=== PATIENT | female | born 1945 | race Caucasian/White ===

== ENCOUNTER → 2017-03-11 | Outpatient (CLI) | payer MEDICARE ==
[2015-06-24 15:59] VITALS: BP 155/71
[~2017-03-11] MED LIST: AMLO10TA2 PO; GABA-585 PO; HYDR-2666 PO; HYDR-971 PO; LISI1TAB3 PO; ROPI0.5T PO
--- NOTE | 2017-03-11 12:13 | CARD ---
APPROVED REPORT EXAM: Two-dimensional and M-mode echocardiogram with Doppler and color Doppler. Other Information Quality : GoodHR: 58bpm Rhythm : Bradycardia INDICATION Hypertension RISK FACTORS PVD 2D DIMENSIONS RVDd3.2 (2.9-3.5cm)Left Atrium(2D)5.1 (1.6-4.0cm) IVSd1.0 (0.7-1.1cm)Aortic Root(2D)3.7 (2.0-3.7cm) LVDd5.1 (3.9-5.9cm)LVOT Diameter2.2 (1.8-2.4cm) PWd1.0 (0.7-1.1cm)LVDs3.4 (2.5-4.0cm) FS (%) 32.6 %SV75.8 ml LVEF(%)60.7 (>50%) Aortic Valve AoV Peak Tyron.90.5cm/sAoV VTI25.1cm AO Peak GR.3.3mmHgLVOT Peak Tyron.66.7cm/s AO Mean GR.2mmHgAVA (VMAX)2.88cm2 Mitral Valve MV E Povtzgck600.2cm/sMV E Peak Gr.4mmHg MV DECEL [id number] A Weavsyxl78.9cm/s MV E Mean Gr.2mmHgE/A Ratio1.3 MV A Spxhndiw96er Pulmonary Valve PV Peak Twdghsyw86.4cm/s Tricuspid Valve TR P. Cblqefbq432px/sTR Peak Gr.30mmHg LEFT VENTRICLE The left ventricle is normal size. There is normal left ventricular wall thickness. The left ventricu lar systolic function is normal and the ejection fraction is within normal range. The Ejection Fracti on is 55-60%. There is normal LV segmental wall motion. Transmitral Doppler flow pattern is Grade II- pseudonormal filling dynamics. RIGHT VENTRICLE The right ventricle is normal size. There is normal right ventricular wall thickness. The right ventr icular systolic function is normal. ATRIA The left atrium is mildly dilated. The right atrium size is normal. The atrial septum is aneurysmal. The interatrial septum is intact with no evidence for an atrial septal defect or patent foramen ovale as noted on 2-D or Doppler imaging. AORTIC VALVE The aortic valve is mildly thickened. The aortic valve is trileaflet. Doppler and Color Flow revealed no significant aortic regurgitation. There is no significant aortic valvular stenosis. MITRAL VALVE There is no evidence of mitral valve prolapse. There is no mitral valve stenosis. Doppler and Color F low revealed mild mitral regurgitation. TRICUSPID VALVE Doppler and Color Flow revealed trace to mild tricuspid regurgitation. The pulmonary artery systolic pressure is estimated at 33 mmHg. PULMONIC VALVE Doppler and Color Flow revealed no pulmonic valvular regurgitation. There is no pulmonic valvular maria d nosis. GREAT VESSELS The aortic root is normal in size. The ascending aorta is normal in size. The pulmonary artery is nor mal. The IVC is normal in size and collapses >50% with inspiration. PERICARDIAL EFFUSION There is no evidence of significant pericardial effusion. Critical Notification Critical Value: No <Conclusion> The left ventricle is normal size. The left ventricular systolic function is normal and the ejection fraction is within normal range. The Ejection Fraction is 55-60%. There is normal left ventricular wall thickness. The atrial septum is aneurysmal. The interatrial septum is intact with no evidence for an atrial septal defect or patent foramen ovale as noted on 2-D or Doppler imaging. There is no significant aortic valvular stenosis. Doppler and Color Flow revealed no significant aortic regurgitation. Doppler and Color Flow revealed mild mitral regurgitation. Doppler and Color Flow revealed trace to mild tricuspid regurgitation. The pulmonary artery systolic pressure is estimated at 33 mmHg.
--- NOTE | 2017-03-11 13:21 | RAD ---
APPROVED REPORT Patient Location: OUT-PATIENT Indications PAD VELOCITY AND DOPPLER WAVEFORM ANALYSIS RIGHT cm/secWaveformSeverity LEFT c m/secWaveformSeverity Ext Iliac Art. 165.0MonophasicExt Iliac Art. 192.0Biphasic pCFA 177.0MonophasicpCFA 119.0Biphasic dCFA 145.0MonophasicdCFA 76.0Biphasic Prof Fem Art. 80.0MonophasicProf Fem Art. 57.0Biphasic Fem Art Prox. OccludedFem Art Prox. 234.0Triphasic Fem Art Mid. OccludedFem Art Mid. 130.0Triphasic Fem Art Dist. 260.0MonophasicFem Art Dist. 160.0Triphasi c Pop Art(AK) 94.0MonophasicPop Art(AK) 79.0Biphasic Pop Art(BK) 78.0MonophasicPop Art(BK) 81.0Biphasic NUCLEAR FUEL PROCESSING TECHNICIAN Prox. 40.0MonophasicPTA Prox. 68.0Biphasic NUCLEAR FUEL PROCESSING TECHNICIAN Dist. 38.0MonophasicPTA Dist. 72.0Biphasic Per Art Mid. 21.0MonophasicPer Art Mid. 45.0Biphasic DEANN Prox. 34.0MonophasicATA Prox. 49.0Biphasic Image Findings Caal scale images of the right lower extremity inflow and outflow vessels reveal mild to moderate ath erosclerotic disease on limited imaging. Color Doppler is notable for turbulence in the distal SFA. Spectral waveforms suggest monophasic waveforms in the inflow vessels likely related to a occlusion o f the proximal to mid SFA. The distal SFA is reconstituted via collaterals with elevated velocities a t 260 cm/s. There is diminished monophasic flow in the below-knee vessels but there is three-vessel r unoff. On the left there is biphasic flow on spectral waveforms and grayscale images again demonstrate mild to moderate atherosclerotic plaque. There is a probable 50% stenosis involving the proximal to mid SF A with elevated velocities of 234 cm/s. Otherwise there is good distal three-vessel runoff in the lef t lower extremity with monophasic waveforms but adequate velocities. Critical Notification Critical Value: No <Conclusion> 1. Occlusion of the previously placed right superficial femoral artery stent. 2. Probable mild to moderate left SFA stenosis with good three-vessel runoff.
== END | disposition home or self-care (01) ==
LOC: US 09:30
PROVIDERS: ATTEND Internal Medicine Cardiovascular Disease
DX: I73.9 Peripheral vascular disease, unspecified (principal); R00.1 Bradycardia, unspecified; Q21.1 Atrial septal defect; I08.1 Rheumatic disorders of both mitral and tricuspid valves
CPT/HCPCS: 93306; 93925

== ENCOUNTER 2017-05-10 06:23 | Outpatient (CLI) | payer MEDICARE ==
[2017-05-10] VITALS (10 sets, daily range): BP systolic 105–148; BP diastolic 52–76
[~2017-05-10] VITALS: Ht 170.2 cm; Wt 72.6 kg
[~2017-05-10 06:23] MED LIST changes: +AMLO5TAB2 PO; +ASCO-78 PO; +ASPI-612 PO; +CALC-584 PO; +CHOL10003 PO; +CLOP75TA PO; +DIPH25CA58 PO; +DULO60CA6 PO; +FERR-26 PO; -HYDR-2666 PO; +HYDR-2758 PO; +HYDR-2762 PO; +LISI-338 PO; +PRAV40TA2 PO; +ROPI1TAB PO
[2017-05-10] MEDS ORDERED: LIDOCAINE 2% 20 ML VIAL. ONE (07:03)
[2017-05-10] MEDS ORDERED: IODIXANOL 320 MG/ML 100 ML VIAL. ONE (07:04)
[2017-05-10 07:05] LABS: HEMATOCRIT 39.3 % (36.0-47.0); HEMOGLOBIN 12.8 g/dL (12.0-15.5); RED BLOOD COUNT 4.29 x10^6/uL (3.50-5.40); RED CELL DISTRIBUTION WIDTH 14.5 % (11.5-14.5); WHITE BLOOD COUNT 4.5 x10^3/uL (4.0-11.0)
[2017-05-10 07:12] LABS: CALCIUM 9.4 mg/dL (8.5-10.1); CREATININE 1.6 mg/dL (0.6-1.0); GFR 31.5; POTASSIUM 4.1 mmol/L (3.5-5.1)
[2017-05-10 07:16] LABS: PROTHROMBIN TIME PATIENT 12.3 SEC (11.7-14.0)
[2017-05-10] MEDS: IV NORMAL SALINE 1000ML BAG 1,000 ML IV SCH ×2 (07:30→08:00)
[2017-05-10] MEDS ORDERED: MIDAZOLAM HCL/PF 5 MG/5 ML VIAL. ONE (07:55)
[2017-05-10] MEDS ORDERED: HEPARIN for IV BOLUS 10,000 UNIT/10 ML VIAL. ONE ×2 (07:55→08:08)
[2017-05-10] MEDS ORDERED: fentaNYL PF VIAL 100 MCG/2 ML VIAL ONE ×2 (07:55→08:31)
[2017-05-10] MEDS ORDERED: dilTIAZem IV PUSH 25 MG/5 ML VIAL ONE (08:08)
[2017-05-10] MEDS ORDERED: NITROGLYCERIN 4 MG/20 ML SYRINGE for CATH LAB. ONE ×2 (08:08)
[2017-05-10] MEDS ORDERED: fentaNYL PF VIAL 100 MCG/2 ML VIAL IV ONE (08:15)
[2017-05-10] MEDS ORDERED: IODIXANOL 320 MG/ML 100 ML VIAL. IART ONE (08:15)
[2017-05-10] MEDS ORDERED: CONTRAST GIVEN MC PRN (08:15)
[2017-05-10] MEDS ORDERED: MIDAZOLAM HCL/PF 5 MG/5 ML VIAL. IV ONE (08:15)
[2017-05-10] MEDS ORDERED: LIDOCAINE 2% 20 ML VIAL. IJ ONE (08:15)
[2017-05-10] MEDS ORDERED: NITROGLYCERIN 200 MCG/2 ML SYRINGE FOR CATH/VASC LAB. ONE (08:39)
[2017-05-10] MEDS ORDERED: VERAPAMIL 5 MG/2 ML VIAL. ONE (08:39)
[2017-05-10] MEDS ORDERED: HEPARIN for IV BOLUS 10,000 UNIT/10 ML VIAL. IV ONE (09:00)
[2017-05-10] MEDS ORDERED: NITROGLYCERIN 200 MCG/2 ML SYRINGE FOR CATH/VASC LAB. IART ONE (09:00)
[2017-05-10] MEDS ORDERED: VERAPAMIL 5 MG/2 ML VIAL. IART ONE (09:00)
[2017-05-10] MEDS ORDERED: HEPARIN for IV BOLUS 10,000 UNIT/10 ML VIAL. IART ONE (09:00)
[2017-05-10] MEDS ORDERED: ACETAMINOPHEN 325 MG TABLET. PO PRN (10:00)
--- NOTE | 2017-05-10 10:12 | PDOC ---
MODERATE SEDATION ASSESSMENT RISKS/ALTERNATIVES Risks/Alternatives Risks and alternatives of this type of sedation and procedure discussed with: RISK/ALTERNATIVES: Patient H & P ON CHART H & P H & P on chart and reviewed for co-morbid conditions and appropriate labs. H&P ON CHART: Yes STATUS PREG STATUS ASSESSED: N/A MEDS/ALLERGIES REVIEWED Meds/Allergies Reviewed Medications and Allergies including time and route of recently administered narcotics and sedatives. MEDS/ALLERGIES REVIEWED: Yes ASA RATING ASA RATING: II AIRWAY ASSESSMENT Airway Assessment Airway patency, oral function limitations, presence of caps, crowns, dentures, partials, and ability to extend neck assessed. AIRWAY ASSESSMENT: Yes MALLAMPATI SCORE MALLAMPATI SCORE: II PRE-SEDATION ASSESSMENT PRE-SEDATION ASSESSMENT: Yes SILVIO DOVER MD May 10, 2017 10:12
[2017-05-10] MEDS ORDERED: IV 1/2 NORMAL SALINE 1,000 ML IV SCH (10:15)
--- NOTE | 2017-05-10 10:42 | CARD ---
APPROVED REPORT Procedure(s) performed: Successful orbital atherectomy/drug-coated balloon HONEY LIQUEFIER/stent placement to the left superficial femoral artery via left posterior tibial arterial access Sedation time: 110 minutes INDICATION The indication(s) include : 72-year-old female with history of peripheral vascular disease with latasha ication recently underwent complex atherectomy/HONEY LIQUEFIER/stent placement to chronic total occlusion involvi ng right superficial femoral artery. She presented today for staged atherectomy/HONEY LIQUEFIER/stent placement t o the left superficial femoral artery.. PROCEDURE NARRATIVE After explaining the risks, benefits and alternative options, informed consent was obtained from angeles ent. Patient was brought to the cardiac Legal Officer and her left foot was prepped and draped in the usua l fashion. After infiltrating the skin and subcutis tissues with local anesthetic, arterial access wa s obtained in the left posterior tibial artery using vascular ultrasound guidance and 6 Jordanian sheath was inserted. A 4 Jordanian angled glide catheter was advanced over a 0.014 inch command guidewire and with the tip positioned in the left common femoral artery left lower extremity angiography was perfor med. This confirmed the previously described long calcified 70% stenosis involving the proximal segme nt, 80% stenosis involving the mid and distal segments and chronic total occlusion involving the left anterior tibial artery. The command guidewire was then exchanged to a 0.014 inch viper guidewire. Multiple orbital atherectom y passes were then performed within the proximal, mid and distal segments of the left superficial fem oral artery using CSI 1.5 Stealth atherectomy floresita. The proximal to midsegment was then treated with drug-coated balloon angioplasty using a 3DMGAMEtronic 5 x 150 mm Inpact DCB. The same balloon was then us ed dilate the mid and distal segments of left superficial femoral artery. The midsegment stenosis was then successfully treated with a 5.5 x 1 50 mm Tejada Supera self-expanding stent that was then post dilated with the previously used DCB. Final angiography showed resolution of the stenosis with good distal flow. Patient tolerated the procedure well. Hemostasis in the left posterior tibial artery was achieved using TR band. There were no immediate complications. Conclusion Successful orbital atherectomy/drug coated balloon angioplasty/stent placement to the left superficia l femoral artery.
[2017-05-10] MEDS ORDERED: CLOPIDOGREL BISULFATE 75 MG TABLET PO ONE ×2 (10:45→11:00)
== END 2017-05-10 12:55 | disposition home or self-care (01) ==
LOC: CCL 06:23
PROVIDERS: ATTEND Internal Medicine Cardiovascular Disease
DX: I70.298 Other atherosclerosis of native arteries of extremities, other extremity (principal); E78.00 Pure hypercholesterolemia, unspecified; I10 Essential (primary) hypertension; J44.9 Chronic obstructive pulmonary disease, unspecified; M19.90 Unspecified osteoarthritis, unspecified site; F41.9 Anxiety disorder, unspecified; F32.9 Major depressive disorder, single episode, unspecified; F17.200 Nicotine dependence, unspecified, uncomplicated; Z79.01 Long term (current) use of anticoagulants; Z87.898 Personal history of other specified conditions; Z90.710 Acquired absence of both cervix and uterus; Z87.39 Personal history of other diseases of the musculoskeletal system and connective tissue; Z96.643 Presence of artificial hip joint, bilateral; Z88.8 Allergy status to other drugs, medicaments and biological substances
CPT/HCPCS: 36415; 37227; 80048; 85027; 85610; 85730; 99152; 99153; C1724; C1769; C1877; C1887; C1892; C2623; J1644; J2001; J2250; J3010; J3490; J7030

== ENCOUNTER 2017-05-16 15:38 | Emergency (ER) | payer MEDICARE ==
[~2017-05-16] VITALS: Ht 170.2 cm; Wt 72.6 kg
[2017-05-16] MEDS ORDERED: fentaNYL PF VIAL 100 MCG/2 ML VIAL IV PRN (16:45)
[2017-05-16 19:05] LABS: BASO # 0.1 x10^3/uL (0.0-0.2); BASO % 1 % (0-3); EOS % 1 % (0-3); HEMOGLOBIN 11.8 g/dL (12.0-15.5); LYMPH # 1.5 x10^3/uL (1.0-4.8); LYMPH % 25 % (24-48); MEAN CORPUSCULAR HEMOGLOBIN 30 pg (25-35); MEAN CORPUSCULAR HGB CONC 33 g/dL (31-37); MEAN CORPUSCULAR VOLUME 91 fL (79-100); MONO % 8 % (0-9); NEUT % 65 % (31-73); PLATELET COUNT 273 x10^3/uL (140-400); RED BLOOD COUNT 3.95 x10^6/uL (3.50-5.40); RED CELL DISTRIBUTION WIDTH 14.3 % (11.5-14.5); WHITE BLOOD COUNT 5.9 x10^3/uL (4.0-11.0)
[2017-05-16 19:28] LABS: CALCIUM 9.1 mg/dL (8.5-10.1); CREATININE 1.2 mg/dL (0.6-1.0); GFR 43.9; POTASSIUM 4.7 mmol/L (3.5-5.1)
--- NOTE | 2017-05-16 20:00 | RAD ---
Indication: Left leg pain. Left lower extremity venous Doppler: Grayscale, color-flow and duplex Doppler evaluation of the left lower extremity deep venous and arterial system was performed. There is no evidence of a left lower extremity DVT. The left lower extremity deep venous system demonstrates normal compressibility with normal response to augmentation and Valsalva. IMPRESSION: No evidence of left lower extremity DVT. Left lower extremity arterial Doppler: There is predominantly monophasic flow throughout the left lower extremity arterial system. The patient does have a stent in the left SFA which appears to be patent. The velocities are normal within the left common femoral, superficial femoral and popliteal arteries. Velocities within the left posterior tibial and anterior tibial arteries as well as the dorsalis pedis artery are normal. No high-grade stenosis or occlusion is seen. IMPRESSION: Monophasic waveforms throughout the left lower extremity arterial system. The patient does have a patent left SFA stent. No high-grade stenosis or occlusion is seen. Electronically signed by: Allen Bauer MD (05/16/2017 7:57 PM) [facility]
[2017-05-16 20:50] VITALS: BP 122/69
[2017-05-16] MEDS ORDERED: oxyCODONE/APAP 7.5/325 1 TAB TABLET PO ONE (21:00)
[2017-05-16] MEDS ORDERED: CEPHALEXIN 250 MG CAPSULE. PO ONE (21:00)
[2017-05-16] MEDS ORDERED: CEPH-264 PO (21:11)
[2017-05-16] MEDS ORDERED: HYDR-2762 PO (21:11)
--- NOTE | 2017-05-17 00:50 | ED.ADGEN ---
Past Medical History Past Medical History: High Cholesterol, Hypertension, Renal Disease, Other Past Surgical History: Appendectomy, Hysterectomy, Oophorectomy Additional Information: About 1/2 PPD. Pt. reports she slowly cut down to 1/2 pack and then kept decreasing and "finally quit." Alcohol Use: Occasionally Drug Use: None Adult General Chief Complaint Chief Complaint: LOWER EXT PAIN HPI HPI Patient is a 72 year old woman, history of CAD, hypertension, renal disease, who presents to the emergency department with a complaint of left lower extremity swelling and pain. Patient had stents placed in the SFA the left lower extremity 7 days ago by her porcelain enamel repairer, Dr. Gomes. Patient noted swelling and pain afterwards. Patient was evaluated in the office today, and was referred to the emergency department to receive imaging of the lower extremity to rule out DVT or arterial abnormality. Patient states she's been taking her chronic pain medications, hydrocodone, at home without relief. States that "I just want to make sure I'm not doing anything wrong and that there is not anything different and needs to be done". She denies any new injuries, any fevers or chills, any weakness, numbness, tingling, nausea or vomiting, chest pain or shortness breath, or other complaints. No history of DVT or PE. Review of Systems Review of Systems Constitutional: Denies fever or chills. [] Eyes: Denies change in visual acuity. [] HENT: Denies nasal congestion or sore throat. [] Respiratory: Denies cough or shortness of breath. [] Cardiovascular: Denies chest pain or edema. [] GI: Denies abdominal pain, nausea, vomiting, bloody stools or diarrhea. [] : Denies dysuria. [] Musculoskeletal: Denies back pain, swelling, redness and pain in the left foot and ankle extending into the calf. Integument: Denies rash. [] Neurologic: Denies headache, focal weakness or sensory changes. [] Endocrine: Denies polyuria or polydipsia. [] Lymphatic: Denies swollen glands. [] Psychiatric: Denies depression or anxiety. [] Current Medications Current Medications Current Medications Medications (Trade) Dose Ordered Sig/Sarah Start Time Stop Time Status Last Admin Dose Admin Cephalexin HCl (Keflex) 500 mg 1X ONCE 05/16/17 21:00 05/16/17 21:01 DC 05/16/17 20:52 500 MG Fentanyl Citrate (Fentanyl 2ml Vial) 25 mcg PRN Q15MIN PRN 05/16/17 16:45 05/16/17 21:21 DC 05/16/17 19:11 25 MCG Oxycodone/ Acetaminophen (Percocet 7.5/ 325) 1 tab 1X ONCE 05/16/17 21:00 05/16/17 21:01 DC 05/16/17 20:52 1 TAB Allergies Allergies Allergies Coded Allergies Type Severity Reaction Last Updated Verified albuterol Allergy Intermediate 06/23/15 Yes Physical Exam Physical Exam Constitutional: Well developed, well nourished, no acute distress, non-toxic appearance. [] HENT: Normocephalic, atraumatic, bilateral external ears normal, oropharynx moist, no oral exudates, nose normal. [] Eyes: PERRLA, EOMI, conjunctiva normal, no discharge. [] Neck: Normal range of motion, no tenderness, supple, no stridor. [] Cardiovascular:Heart rate regular rhythm, no murmur , S1, S2, rubs or gallops. [ ] Lungs & Thorax: Bilateral breath sounds clear to auscultation, no wheezing, rhonchi, rales. No chest or crepitus or tenderness. [] Abdomen: Bowel sounds normal, soft, no tenderness, no rebound, rigidity, no guarding, no masses, no pulsatile masses. [] Skin: Warm, dry, no erythema, no rash. [] Back: No tenderness, no CVA tenderness. [] Extremities: Patient with 2+ pitting edema with tenderness from the mid calf down into the foot, with mild erythema noted in the anterior aspect of the leg primarily, no abscess formation or induration. Full range of motion, other extremities are unremarkable. Pulses are 2+ bilaterally. Neurologic: Alert and oriented X 3, normal motor function, normal sensory function, no focal deficits noted. [] Psychologic: Affect normal, judgement normal, mood normal. [] Current Patient Data Vital Signs Vital Signs Date Time Temp Pulse Resp B/P (MAP) Pulse Ox O2 Delivery O2 Flow Rate FiO2 05/16/17 20:52 16 96 Room Air 05/16/17 20:50 71 122/69 (86) 05/16/17 16:42 98.5 98.5 Lab Values Laboratory Tests Test 05/16/17 18:59 White Blood Count 5.9 x10^3/uL (4.0-11.0) Red Blood Count 3.95 x10^6/uL (3.50-5.40) Hemoglobin 11.8 g/dL (12.0-15.5) L Hematocrit 36.0 % (36.0-47.0) Mean Corpuscular Volume 91 fL (79-100) Mean Corpuscular Hemoglobin 30 pg (25-35) Mean Corpuscular Hemoglobin Concent 33 g/dL (31-37) Red Cell Distribution Width 14.3 % (11.5-14.5) Platelet Count 273 x10^3/uL (140-400) Neutrophils (%) (Auto) 65 % (31-73) Lymphocytes (%) (Auto) 25 % (24-48) Monocytes (%) (Auto) 8 % (0-9) Eosinophils (%) (Auto) 1 % (0-3) Basophils (%) (Auto) 1 % (0-3) Neutrophils # (Auto) 3.9 x10^3uL (1.8-7.7) Lymphocytes # (Auto) 1.5 x10^3/uL (1.0-4.8) Monocytes # (Auto) 0.5 x10^3/uL (0.0-1.1) Eosinophils # (Auto) 0.1 x10^3/uL (0.0-0.7) Basophils # (Auto) 0.1 x10^3/uL (0.0-0.2) Sodium Level 143 mmol/L (136-145) Potassium Level 4.7 mmol/L (3.5-5.1) Chloride Level 104 mmol/L (98-107) Carbon Dioxide Level 30 mmol/L (21-32) Anion Gap 9 (6-14) Blood Urea Nitrogen 24 mg/dL (7-20) H Creatinine 1.2 mg/dL (0.6-1.0) H Estimated GFR (Cockcroft-Gault) 43.9 Glucose Level 99 mg/dL (70-99) Calcium Level 9.1 mg/dL (8.5-10.1) Laboratory Tests 05/16/17 18:59 Laboratory Tests 05/16/17 18:59 EKG EKG Not indicated. [] Radiology/Procedures Radiology/Procedures [][facility] [address] [place] [address] IMAGING REPORT Signed PATIENT: IGGY MONTOYA ACCOUNT: [id number] : 1945 LOCATION: ER AGE: 72 SEX: F EXAM STATUS: DEP ER ORD. PHYSICIAN: LIDIA PALENCIA DO REASON: swelling/pain PROCEDURE: DUPLEX LOWER EXT ARTERIAL LEFT Indication: Left leg pain. Left lower extremity venous Doppler: Grayscale, color-flow and duplex Doppler evaluation of the left lower extremity deep venous and arterial system was performed. There is no evidence of a left lower extremity DVT. The left lower extremity deep venous system demonstrates normal compressibility with normal response to augmentation and Valsalva. IMPRESSION: No evidence of left lower extremity DVT. Left lower extremity arterial Doppler: There is predominantly monophasic flow throughout the left lower extremity arterial system. The patient does have a stent in the left SFA which appears to be patent. The velocities are normal within the left common femoral, superficial femoral and popliteal arteries. Velocities within the left posterior tibial and anterior tibial arteries as well as the dorsalis pedis artery are normal. No high-grade stenosis or occlusion is seen. IMPRESSION: Monophasic waveforms throughout the left lower extremity arterial system. The patient does have a patent left SFA stent. No high-grade stenosis or occlusion is seen. Electronically signed by: Allen Bauer MD (05/16/2017 7:57 PM) [facility] DICTATED and SIGNED BY: ALLEN BAUER MD DATE: 05/16/171953 CC: LIDIA PALENCIA DO; Juana RODRIGUEZ MD ~ Course & Med Decision Making Course & Med Decision Making Pertinent Labs and Imaging studies reviewed. (See chart for details) Patient well-appearing, aside from swelling and redness as stated, agreeable to receiving ultrasound in the emergency department. Initially did decline laboratory studies and IV placement, was agreeable when discussed administering IV pain medication as it will take some time to have the patient's ultrasound obtained and read. There was a delay in receiving reads of ultrasounds due to technical difficulties with the PAC system. Imaging however was unremarkable for any concerning findings, SFA stents patent. I did discuss findings with patient, laboratory studies were also unremarkable. However, due to redness and swelling with warmth, will treat for possible cellulitis, although the patient' s changes may be consistent with her postprocedure state also. Patient states that she is very ready to be discharged home, and is comfortable with use of pain medications at home, and activity recommendations as discussed in the ED. We discussed concerning symptoms that prompt return, patient first dose of Keflex and a dose of hydrocodone in the ED, also given extra pain medication to ensure that she is able to meet her needs until she follows up with her primary care provider. We discussed concerning symptoms that would prompt return to the emergency department, and importance of following up with primary care provider and cardiology. Patient voiced understanding and agreement, discharged home with in stable condition with plan and precautions as above. Dragon Disclaimer Dragon Disclaimer This electronic medical record was generated, in whole or in part, using a voice recognition dictation system. Departure Impression: Primary Impression: Pain and swelling of left lower leg Disposition: HOME, SELF-CARE Condition: IMPROVED Scripts Cephalexin (KEFLEX) 500 Mg Capsule 1 CAP PO BID, #14 CAP Prov: LIDIA PALENCIA DO 05/16/17 Hydrocodone Bit/Acetaminophen (HYDROCODONE-APAP 7.5-325 ) 1 Each Tablet 1 TAB PO PRN Q6HRS Y for PAIN, #12 TAB 0 Refills Prov: LIDIA PALENCIA DO 05/16/17 LIDIA PALENCIA DO May 17, 2017 00:50
== END 2017-05-16 21:16 | disposition home or self-care (01) ==
LOC: ER 15:38
DX: M79.605 Pain in left leg (principal); R22.42 Localized swelling, mass and lump, left lower limb; E78.00 Pure hypercholesterolemia, unspecified; I10 Essential (primary) hypertension; I25.10 Atherosclerotic heart disease of native coronary artery without angina pectoris; F17.200 Nicotine dependence, unspecified, uncomplicated; Z88.8 Allergy status to other drugs, medicaments and biological substances
CPT/HCPCS: 36415; 80048; 85027; 93926; 93971; 96374; 99285; J3010

== ENCOUNTER → 2017-12-05 | Outpatient (CLI) | payer OTHER, MEDICARE ==
[2017-12-05] MEDS: REGADENOSON 0.4 MG/5 ML DISP.SYRIN. IV (08:45)
== END | disposition home or self-care (01) ==
LOC: NM 07:24
DX: I12.9 Hypertensive chronic kidney disease with stage 1 through stage 4 chronic kidney disease, or unspecified chronic kidney disease (principal); N18.3 Chronic kidney disease, stage 3 (moderate); Z87.891 Personal history of nicotine dependence
CPT/HCPCS: 78452; 93017; 96374; 96375; 96376; A9500; J2785

== ENCOUNTER → 2018-07-02 | Outpatient (CLI) | payer OTHER ==
[~2018-07-02] MED LIST changes: -AMLO10TA2 PO; +AMLO10TA6 PO; -AMLO5TAB2 PO; +AMLO5TAB7 PO; +CEPH-264 PO; -FERR-26 PO; +FERR325T14 PO
--- NOTE | 2018-07-08 12:59 | RAD ---
DATE: 07/02/2018 EXAM: MAMMO MORRO SCREENING BILATERAL HISTORY: Routine screening COMPARISON: None available This study was interpreted with the benefit of Computerized Aided Detection (CAD). Breast Density: SCATTERED The breast parenchyma shows scattered fibroglandular densities. Breast parenchyma level B. FINDINGS: 2-D and 3-D tomosynthesis imaging was performed in CC and MLO projections. There are several tiny smooth nodules in the breasts. Multiple smooth nodules such as this tend to be benign. No spiculated mass or architectural distortion is seen. Benign type calcifications are present. No suspicious microcalcifications have developed. IMPRESSION: There is no mammographic evidence of malignancy in either breast. BI-RADS CATEGORY: 2 BENIGN FINDING(S) RECOMMENDED FOLLOW-UP: 12M 12 MONTH FOLLOW-UP PQRS compliance statement: Patient information was entered into a reminder system with a target due date for the next mammogram. Mammography is a sensitive method for finding small breast cancers, but it does not detect them all and is not a substitute for careful clinical examination. A negative mammogram does not negate a clinically suspicious finding and should not result in delay in biopsying a clinically suspicious abnormality. "Our facility is accredited by the [employer] Mammography Program."
== END | disposition home or self-care (01) ==
LOC: MAMMO 14:53
PROVIDERS: ATTEND Family Medicine
DX: Z12.31 Encounter for screening mammogram for malignant neoplasm of breast (principal); I12.9 Hypertensive chronic kidney disease with stage 1 through stage 4 chronic kidney disease, or unspecified chronic kidney disease; N18.3 Chronic kidney disease, stage 3 (moderate); Z88.6 Allergy status to analgesic agent; Z88.8 Allergy status to other drugs, medicaments and biological substances; E78.5 Hyperlipidemia, unspecified; E78.00 Pure hypercholesterolemia, unspecified; Z86.2 Personal history of diseases of the blood and blood-forming organs and certain disorders involving the immune mechanism; Z87.891 Personal history of nicotine dependence; Z87.39 Personal history of other diseases of the musculoskeletal system and connective tissue; Z90.710 Acquired absence of both cervix and uterus; Z83.3 Family history of diabetes mellitus
CPT/HCPCS: 77063; 77067

== ENCOUNTER → 2018-12-12 | Outpatient (CLI) | payer OTHER ==
[~2018-12-12] MED LIST changes: -AMLO10TA6 PO; +AMLO10TA8 PO; +AMLO5TAB10 PO; -AMLO5TAB7 PO; -HYDR-2758 PO; +HYDR-2761 PO; -HYDR-2762 PO; +HYDR-2765 PO; +HYDR-3164 PO; -HYDR-971 PO
--- NOTE | 2018-12-12 13:10 | RAD ---
MR#: [id number] Date of Study: 12/12/2018 Ordering Physician: SILVIO DOVER, Referring Physician: Christopher POST: Pauline Foster RDMS RVT APPROVED REPORT Patient Location: OUT-PATIENT Indications PAD VELOCITY AND DOPPLER WAVEFORM ANALYSIS RIGHT cm/secWaveformSeverity LEFT cm/secWaveform Severity pCFA 216.9BiphasicpCFA 115.7Biphasic Prof Fem Art. 146.1BiphasicProf Fem Art. 65.9Biphasic Fem Art Prox. 146.1BiphasicFem Art Prox. 89.1Biphasic Fem Art Mid. 140.3BiphasicFem Art Mid. 101.8Monophasic Fem Art Dist. 113.8BiphasicFem Art Dist. 91.4 Pop Art(Fossa) 126.8BiphasicPop Art(AK) 59.0Monophasic PHOTOGRAPHY ASSISTANT Dist. 80.5BiphasicPTA Dist. 56.1Monophasic Per Art Dist.66.8BiphasicPer Art Dist.42.2Monophasic DEANN Dist. 52.1BiphasicATA Dist. 29.5Monophasic DPA 49BiphasicDPA Findings Grayscale images of the bilateral lower extremity arterial vessels reveal diffuse atherosclerosis. On the right common femoral artery velocities are elevated but no focal obstruction is identified on grayscale images. Spectral waveforms are mostly biphasic throughout the right lower extremity arteria l tree with three-vessel runoff below the knee. No focal stenosis is noted. A probable stent is locat ed in the right superficial femoral artery. On the left velocities are grossly within normal limits in the common femoral and superficial femoral arteries. The popliteal velocities are slightly diminished and monophasic. There is three-vessel run off below the knee but with diminished velocities suggestive of likely 50% stenosis involving the lef t popliteal artery. Critical Notification Critical Value: No <Conclusion> 1. No significant flow-limiting stenosis is noted on the right side. 2. Probable 50% stenosis involving the left popliteal artery. Signed by : John Paul Perez, Electronically Approved : 12/12/2018 13:09:51
--- NOTE | 2018-12-12 13:13 | CARD ---
MR#: [id number] Date of Study: 12/12/2018 Ordering Physician: SILVIO DOVER, Referring Physician: SILVIO DOVER Tech: Eli Dixon RDCS APPROVED REPORT EXAM: Two-dimensional and M-mode echocardiogram with Doppler and color Doppler. Other Information Quality : Good INDICATION Hypertension/HCVD 2D DIMENSIONS RVDd3.0 (2.9-3.5cm)Left Atrium(2D)4.1 (1.6-4.0cm) IVSd1.2 (0.7-1.1cm)Aortic Root(2D)2.9 (2.0-3.7cm) LVDd3.5 (3.9-5.9cm)LVOT Diameter2.2 (1.8-2.4cm) PWd1.1 (0.7-1.1cm)LVDs2.5 (2.5-4.0cm) FS (%) 29.1 %SV29.1 ml LVEF(%)56.8 (>50%) Aortic Valve AoV Peak Tyron.113.2cm/sAoV VTI19.7cm AO Peak GR.5.1mmHgLVOT Peak Tyron.78.4cm/s AO Mean GR.3mmHgAVA (VMAX)2.63cm2 SHAMIR (VTI)3.40cm2 Mitral Valve MV E Mqmxspeq23.8cm/sMV DECEL ZOVP489oy MV A Rgejxepo71.8cm/sE/A Ratio0.7 Tricuspid Valve TR P. Svluvdeo009zr/sRAP KFQKQLCU1ajSq TR Peak Gr.40emXkJZCC60jpIw Pulmonary Vein S1 Esmuzedt11.2cm/sD2 Udezurdd65.4cm/s LEFT VENTRICLE The left ventricle is normal size. There is mild concentric left ventricular hypertrophy. Left ventri anuradha systolic function is low normal. The Ejection Fraction is 50-55%. There is normal LV segmental wa ll motion. Transmitral Doppler flow pattern is Grade I-abnormal relaxation pattern. RIGHT VENTRICLE The right ventricle is normal size. The right ventricular systolic function is normal. ATRIA The left atrium is mildly dilated. The right atrium size is normal. The interatrial septum is intact with no evidence for an atrial septal defect or patent foramen ovale as noted on 2-D or Doppler imagi ng. AORTIC VALVE The aortic valve is calcified but opens well. Doppler and Color Flow revealed no significant aortic r egurgitation. There is no significant aortic valvular stenosis. MITRAL VALVE The mitral valve is calcified but opens well. There is no evidence of mitral valve prolapse. There is no mitral valve stenosis. Doppler and Color-flow revealed trace mitral regurgitation. TRICUSPID VALVE The tricuspid valve is normal in structure and function. Doppler and Color Flow revealed no tricuspid valve regurgitation noted. There is no tricuspid valve stenosis. PULMONIC VALVE The pulmonic valve is not well visualized. Doppler and Color Flow revealed no pulmonic valvular regur gitation. There is no pulmonic valvular stenosis. GREAT VESSELS The aortic root is normal in size. The ascending aorta is normal in size. The IVC is normal in size a nd collapses >50% with inspiration. PERICARDIAL EFFUSION There is no evidence of significant pericardial effusion. Critical Notification Critical Value: No <Conclusion> Left ventricle systolic function is low normal. The Ejection Fraction is 50-55%. There is normal LV segmental wall motion. Signed by : John Paul Perez, Electronically Approved : 12/12/2018 13:12:46
== END | disposition home or self-care (01) ==
LOC: ECHO 07:53
PROVIDERS: ATTEND Internal Medicine Cardiovascular Disease
DX: I70.293 Other atherosclerosis of native arteries of extremities, bilateral legs (principal); I70.0 Atherosclerosis of aorta; I11.9 Hypertensive heart disease without heart failure
CPT/HCPCS: 93306; 93925

== ENCOUNTER → 2019-08-03 | Outpatient (CLI) | payer OTHER ==
[~2019-08-03] MED LIST changes: +LISI1TAB23 PO; -LISI1TAB3 PO; +REGADENOSON 0.4 MG/5 ML DISP.SYRIN. IV ONE
--- NOTE | 2019-08-03 12:35 | RAD ---
MR#: [id number] Date of Study: 08/03/2019 Ordering Physician: SILVIO DOVER Referring Physician: PAULO POST Tech: CORBY Linares APPROVED REPORT Test Type: Pharmacological Stress Nurse/Tech: Yenifer Moran RN Test Indications: PAD Cardiac History: Hypertension,PAD Medications: See Electronic Medical Record Medical History: See Electronic Medical Record Resting ECG: SR with BBB and PVC's Resting Heart Rate: 64 bpm Resting Blood Pressure: 168/82mmHg Pretest Chest Pain: No chest pain Nurse/Tech Notes S1,S2 and lungs clear to auscultation. Consent: The procedure was explained to the patient in lay terms. Informed consent was witnessed. Aaron eout was entered into [employer]. History and Stress Test performed by CORBY Linares Pharm. Details Pharmacologic stress testing was performed using 0.4mg per 5ml of regadenoson given intravenously ove r 7-10 seconds. Stress Symptoms No chest pain or symptoms. POST EXERCISE Reason for Termination: Infusion complete Target HR: No Max HR: 113 bpm 92% of Maximum Predicted HR: 122 bpm Max Blood Pressure: 142/76mmHg Blood Pressure response to exercise: Normal blood pressure response during stress. Heart Rate response to exercise: WNL Chest Pain: No. Arrhythmia: Yes. PVC's ST Change: No. INTERPRETATION Stress EKG Conclusion: Baseline EKG showed sinus rhythm. No ischemic changes at peak stress. PVC's without any other arrhythmias. Imaging Protocol IMAGE PROTOCOL: Rest Tc-99m/stress Tc-99m 1 day Rest: Stress: Viability: Radiopharm.Tc99m LklywxjumBc83y Sestamibi Rkuk10lZy 33mCi Duration 15min. 13min. Img Date 08/03/2019 08/03/2019 Inj-Img Jlee65ljz. 60min. Rest Admin Site:IV - Right AntecubitalAdministrator:CORBY Linares Stress Admin Site: IV - Right AntecubitalAdministrator: CORBY Linares STRESS DATA End Diast. Vol.63.0mlLVEDV index BSA33.0ml End Syst. Vol.21.0mlLVESV index BSA11.0ml Myocardial Hzrx243.0gEject. Xlfmpmna07.0% Stress Scores Regional WT1.00Summed WT3.00 Regional WM0.00Summed WM4.00 LV Perfusion Scintigraphic images showed moderate reversible defect involving the inferolateral wall consistent wi th ischemia. Wall Motion Normal left ventricle systolic function with ejection fraction calculated at 67%. LV Perf. Quant 17 Seg. SSS6.00 17 Seg. SRS0.00 17 Seg. SDS6.00 Stress Defect Extent (% LAD)0.00Rest Defect Extent (% LAD)0.00Rev. Defect Extent (% LAD)0.00 Stress Defect Extent (% LCX) 63.80Rest Defect Extent (% LCX)0.00Rev. Defect Extent (% LCX)63.80 Stress Defect Extent (% RCA)3.30Rest Defect Extent (% RCA)0.00Rev. Defect Extent (% RCA)3.30 Stress Defect Extent (% ANNA)15.00Rest Defect Extent (% ANNA)0.00Rev. Defect Extent (% ANNA)15.00 Conclusion 1. Regadenoson cardioisotope stress test showed moderate amount of inferolateral wall ischemia. 2. Normal left ventricular systolic function with ejection fraction calculated at 67%. 3. Intermediate risk for cardiac events. Signed by : Silvio Dover, Electronically Approved : 08/03/2019 12:35:25
== END | disposition home or self-care (01) ==
LOC: NM 08:17
PROVIDERS: ATTEND Internal Medicine Cardiovascular Disease
DX: I25.89 Other forms of chronic ischemic heart disease (principal); I73.9 Peripheral vascular disease, unspecified; I10 Essential (primary) hypertension; Z87.891 Personal history of nicotine dependence
CPT/HCPCS: 78452; 93017; A9500; J2785

== ENCOUNTER 2019-11-06 06:54 | Outpatient (CLI) | payer BC ==
[2019-11-06] VITALS (14 sets, daily range): BP systolic 105–154; BP diastolic 65–84
[~2019-11-06] VITALS: Ht 167.6 cm; Wt 77.1 kg
[~2019-11-06 06:54] MED LIST changes: -REGADENOSON 0.4 MG/5 ML DISP.SYRIN. IV ONE
[2019-11-06] MEDS ORDERED: BUSP5TAB PO (07:19)
[2019-11-06] MEDS ORDERED: ATOR20TA58 PO (07:19)
[2019-11-06] MEDS ORDERED: MIRA50TA PO (07:19)
[2019-11-06] MEDS ORDERED: LORA10TA3 PO (07:19)
[2019-11-06] MEDS ORDERED: EZET10TA20 PO (07:19)
[2019-11-06 07:33] LABS: HEMATOCRIT 39.8 % (36.0-47.0); HEMOGLOBIN 13.2 g/dL (12.0-15.5); RED BLOOD COUNT 4.35 x10^6/uL (3.50-5.40); RED CELL DISTRIBUTION WIDTH 14.3 % (11.5-14.5); WHITE BLOOD COUNT 4.3 x10^3/uL (4.0-11.0)
[2019-11-06 07:37] LABS: PROTHROMBIN TIME PATIENT 11.5 SEC (11.7-14.0)
[2019-11-06] MEDS ORDERED: LIDOCAINE 1% PF 2 ML VIAL. ONE (07:37)
[2019-11-06] MEDS ORDERED: IODIXANOL 320 MG/ML 100 ML VIAL. ONE (07:37)
[2019-11-06 07:39] LABS: CALCIUM 9.3 mg/dL (8.5-10.1); CREATININE 1.3 mg/dL (0.6-1.0); GFR 39.8; POTASSIUM 4.8 mmol/L (3.5-5.1)
[2019-11-06] MEDS ORDERED: HEPARIN for IV BOLUS 10,000 UNIT/10 ML VIAL. IART ONE (08:00)
[2019-11-06] MEDS ORDERED: LIDOCAINE 1% PF 2 ML VIAL. INJ ONE (08:00)
[2019-11-06] MEDS ORDERED: IODIXANOL 320 MG/ML 100 ML VIAL. IART ONE (08:00)
[2019-11-06] MEDS ORDERED: VERAPAMIL 5 MG/2 ML VIAL. IART ONE (08:00)
[2019-11-06] MEDS ORDERED: MIDAZOLAM HCL/PF 2 MG/2 ML VIAL. IV ONE (08:00)
[2019-11-06] MEDS ORDERED: NITROGLYCERIN 200 MCG/2 ML SYRINGE FOR CATH/VASC LAB. IART ONE (08:00)
[2019-11-06] MEDS ORDERED: fentaNYL PF VIAL 100 MCG/2 ML VIAL IV ONE (08:00)
[2019-11-06] MEDS ORDERED: BIVALIRUDIN 250 MG VIAL. IV ONE ×2 (09:31→09:45)
[2019-11-06] MEDS ORDERED: ASPIRIN 325 MG TABLET ONE (10:14)
[2019-11-06] MEDS ORDERED: ASPIRIN 325 MG TABLET PO ONE (10:15)
[2019-11-06] MEDS ORDERED: CLOPIDOGREL BISULFATE 75 MG TABLET ONE (10:19)
[2019-11-06] MEDS ORDERED: IV 1/2 NORMAL SALINE 1,000 ML IV SCH (10:27)
--- NOTE | 2019-11-06 10:27 | PDOC ---
MODERATE SEDATION ASSESSMENT RISKS/ALTERNATIVES Risks/Alternatives Risks and alternatives of this type of sedation and procedure discussed with: RISK/ALTERNATIVES: Patient H & P ON CHART H & P H & P on chart and reviewed for co-morbid conditions and appropriate labs. H&P ON CHART: Yes STATUS PREG STATUS ASSESSED: N/A MEDS/ALLERGIES REVIEWED Meds/Allergies Reviewed Medications and Allergies including time and route of recently administered narcotics and sedatives. MEDS/ALLERGIES REVIEWED: Yes ASA RATING ASA RATING: III AIRWAY ASSESSMENT Airway Assessment Airway patency, oral function limitations, presence of caps, crowns, dentures, partials, and ability to extend neck assessed. AIRWAY ASSESSMENT: Yes MALLAMPATI SCORE MALLAMPATI SCORE: II PRE-SEDATION ASSESSMENT PRE-SEDATION ASSESSMENT: Yes SILVIO DOVER MD Nov 06, 2019 10:27
[2019-11-06] MEDS ORDERED: CLOPIDOGREL BISULFATE 75 MG TABLET PO ONE (10:30)
[2019-11-06] MEDS ORDERED: ACETAMINOPHEN 325 MG TABLET. PO PRN (10:30)
[2019-11-06] MEDS ORDERED: 0.9 % SODIUM CHLORIDE 10 ML DISP.SYRIN. IV PRN (10:30)
[2019-11-06] MEDS ORDERED: NITROGLYCERIN SUBLINGUAL 0.4 MG BOTTLE OF 25. SL PRN (10:30)
--- NOTE | 2019-11-06 14:14 | NUR ---
TR band removed. Dressing applied. Armboard reapplied. Discharge instructions reviewed with pt and family.
--- NOTE | 2019-11-06 14:29 | NUR ---
pt discharged home in private vehicle with family. Pt ambulated and tolerated PO. PIV dcd
[2019-11-07] MEDS ORDERED: CLOPIDOGREL BISULFATE 75 MG TABLET PO SCH (08:00)
[2019-11-07] MEDS ORDERED: ASPIRIN ENTERIC COATED 325 MG TABLET.DR. PO SCH (08:00)
--- NOTE | 2019-11-09 11:58 | CARD ---
MR#: [id number] Date of Study: 11/06/2019 Ordering Physician: SILVIO GOMES, Referring Physician: SILVIO GOMES Tech: TONYA CORDERO APPROVED REPORT Technologist: TONYA CORDERO Nurse: Yenifer Moran RN Procedure(s) performed: 1. Left heart catheterization and selective coronary angiography via right t ransradial approach 2. Successful PCI/drug eluting stent placement to the right coronary artery Flouro Time: 19.9 min Dose: 94 Gycm2 Contrast Total: 120mL Visi Sedation Time: 60 min INDICATION The indication(s) include : Dyspnea on exertion and positive stress test concerning for unstable renee na. [facility] Clinical Frailty Scale [facility] Clinical Frailty Scale: Mildly Frail Heart Failure Heart Failure: No PROCEDURE NARRATIVE After explaining the risks, benefits and alternative options, informed consent was obtained from [place] ent. Patient was brought to the cardiac [employer]ist and right wrist was prepped and draped in the usual fashion after confirming a positive modified Nicko's test. Arterial access was obtained in the righ t radial artery and a 6 Lao sheath was inserted. 6 Lao Meño catheter was used to perform aditi ective angiography of the left and right coronary arteries. LVEDP and transaortic gradients were keyonna ured. The following findings were noted. FINDINGS 1. Hemodynamics: Left ventricular end-diastolic pressure of 21 mmHg consistent with mild acute on ch ronic diastolic heart failure. No pullback gradient across the aortic valve. 2. Coronary angiography: a. The left main coronary artery arose from the left sinus of Valsalva, gave rise to the left anteri or descending, ramus intermedius and left circumflex arteries and did not show any significant stenos is. b. The left anterior descending artery did not show any significant stenosis. c. The ramus intermedius artery did not show any significant stenosis. d. The left circumflex artery showed 80% stenosis in the midsegment and a long chronic total occlusi on involving proximal and mid segments for small to medium caliber obtuse marginal branch with distal reconstitution from left to left collaterals. e. The right coronary artery was a large and dominant vessel arising from the right sinus of Valsalv a that was very tortuous and showed a heavily calcified 90% stenosis in the midsegment. INTERVENTION The right coronary artery was engaged with a 6 Lao JR4 guide catheter. The stenosis in the midsegm ent was crossed with a 0.014 inch Joinnus Pro water guidewire. Several initial attempts to advance a ba lloon across the lesion were unsuccessful due to heavy calcification and tortuosity. A 6 Lao Guide liner inner catheter was then advanced into the proximal to midsegment for better support. The lesion was then dilated with a 2.5 x 15 mm Euphora balloon following which this was successfully treated wi th a 3.0 x 22 mm resolute Jeff drug-eluting stent. Follow-up angiorrhaphy showed resolution of the st enosis to 0% with AUSTIN-3 distal flow. Patient tolerated the procedure well. Hemostasis was achieved u sing TR band. There were no immediate complications. [place]USTIN Flow AUSTIN Flow (Pre-Intervention): AUSTIN-3 AUSTIN Flow (Post-Intervention): AUSTIN-3 Conclusion 1. Two-vessel coronary artery disease with 90% calcified stenosis involving the right coronary arter y and long chronic total occlusion of a small to medium caliber obtuse marginal branch of left circum flex artery 2. Successful PCI/drug eluting stent placement to the right coronary artery 3. Mild acute on chronic diastolic heart failure Recommendations 1. Aspirin 325 mg daily for one month followed by 81 mg daily 2. Plavix 75 mg daily for preferably one year 3. Cardiovascular risk factor modification Signed by : Silvio Gomes, Electronically Approved : 11/06/2019 10:38:41
== END 2019-11-06 14:31 | disposition home or self-care (01) ==
LOC: CCL 06:54
PROVIDERS: ATTEND Internal Medicine Cardiovascular Disease
DX: I25.110 Atherosclerotic heart disease of native coronary artery with unstable angina pectoris (principal); F32.9 Major depressive disorder, single episode, unspecified; F41.9 Anxiety disorder, unspecified; I12.9 Hypertensive chronic kidney disease with stage 1 through stage 4 chronic kidney disease, or unspecified chronic kidney disease; N18.3 Chronic kidney disease, stage 3 (moderate); D64.9 Anemia, unspecified; Z88.8 Allergy status to other drugs, medicaments and biological substances; Z79.82 Long term (current) use of aspirin; Z79.899 Other long term (current) drug therapy; Z79.01 Long term (current) use of anticoagulants; Z98.890 Other specified postprocedural states; Z90.710 Acquired absence of both cervix and uterus; Z96.643 Presence of artificial hip joint, bilateral; Z87.891 Personal history of nicotine dependence
CPT/HCPCS: 36415; 80048; 85027; 85610; 93458; 99152; 99153; C1713; C1725; C1769; C1874; C1887; C1892; C9600; J0583; J1644; J2250; J3010; J3490; Q9967; 92928

== ENCOUNTER → 2020-06-16 | Outpatient (CLI) | payer BC ==
[2019-11-06 14:15] VITALS: BP 126/78
[~2020-06-16] MED LIST changes: -ASPI-612 PO; +ASPI-886 PO; +ATOR20TA58 PO; +BUSP5TAB PO; +EZET10TA20 PO; +LORA10TA3 PO; +MIRA50TA PO
--- NOTE | 2020-06-16 17:05 | CARD ---
MR#: [id number] Date of Study: 06/16/2020 Ordering Physician: SILVIO DOVER, Referring Physician: SILVIO DOVER, Tech: Deloris Fleming APPROVED REPORT EXAM: Two-dimensional and M-mode echocardiogram with Doppler and color Doppler. Other Information Quality : AverageHR: 75bpm Technically limited study due to body habitus. INDICATION Cardiac Disease: CAD RISK FACTORS Hypertension Hyperlipidemia Smoking 2D DIMENSIONS RVDd3.5 (2.9-3.5cm)Left Atrium(2D)4.5 (1.6-4.0cm) IVSd1.1 (0.7-1.1cm)Aortic Root(2D)3.2 (2.0-3.7cm) LVDd4.9 (3.9-5.9cm)LVOT Diameter2.1 (1.8-2.4cm) PWd0.9 (0.7-1.1cm)LVDs4.0 (2.5-4.0cm) FS (%) 19.0 %SV44.0 ml LVEF(%)39.1 (>50%) Aortic Valve AoV Peak Tyron.118.2cm/sAoV VTI25.7cm AO Peak GR.5.6mmHgLVOT Peak Tyron.64.0cm/s LVOT VTI 15.45cmAO Mean GR.3mmHg SHAMIR (VMAX)1.57no1BTO (VTI)2.08cm2 Mitral Valve MV E Ifuznydq90.9cm/sMV DECEL ORHH367ad MV A Usgxjzmz02.4cm/sMV E Mean Gr.1mmHg MV KIT47wqY/A Ratio1.7 MVA (PHT)3.34cm2 TDI E/Lateral E'8.2E/Medial E'11.7 Pulmonary Valve PV Peak Btdxzkdg16.9cm/sPV Peak Grad.2mmHg Tricuspid Valve TR P. Kymtrdww774je/sRAP FIVJPVZU6xsNr TR Peak Gr.47kuGqMOGU39puTl Pulmonary Vein S1 Udwiiafq86.6cm/sD2 Cdhrnnuc25.5cm/s PVa hlwgcfgd347hpni LEFT VENTRICLE The left ventricle is normal size. There is normal left ventricular wall thickness. The left ventricu lar systolic function is normal and the ejection fraction is within normal range. EF 55% There is nor mal LV segmental wall motion. Transmitral Doppler flow pattern is Grade II-pseudonormal filling dynam ics. RIGHT VENTRICLE The right ventricle is normal size. There is normal right ventricular wall thickness. The right ventr icular systolic function is normal. ATRIA The left atrium size is normal. The right atrium size is normal. The interatrial septum is intact wit h no evidence for an atrial septal defect or patent foramen ovale as noted on 2-D or Doppler imaging. AORTIC VALVE The aortic valve is normal in structure and function. Doppler and Color Flow revealed no significant aortic regurgitation. There is no significant aortic valvular stenosis. Calculated aortic valve area is 2.78 cm2 with maximum pressure gradient of 7 mmHg and mean pressure gradient of 4 mmHg. MITRAL VALVE The mitral valve is normal in structure and function. There is no evidence of mitral valve prolapse. There is no mitral valve stenosis with a mean gradient of 1.4 mmHg. Doppler and Color-flow revealed t race to mild mitral regurgitation. TRICUSPID VALVE The tricuspid valve is normal in structure and function. Doppler and Color Flow revealed trace tricus pid regurgitation with an estimated PAP of 26 mmHg. There is no tricuspid valve stenosis. PULMONIC VALVE The pulmonic valve is not well visualized. Doppler and Color Flow revealed no pulmonic valvular regur gitation. There is no pulmonic valvular stenosis. GREAT VESSELS The aortic root is normal in size. The IVC was not visualized. PERICARDIAL EFFUSION There is no evidence of significant pericardial effusion. Critical Notification Critical Value: No <Conclusion> The left ventricular systolic function is normal and the ejection fraction is within normal range. EF 55% There is normal LV segmental wall motion. Signed by : John Paul Perez, Electronically Approved : 06/16/2020 17:04:46
== END | disposition home or self-care (01) ==
LOC: ECHO 13:00
PROVIDERS: ATTEND Internal Medicine Cardiovascular Disease
DX: I25.10 Atherosclerotic heart disease of native coronary artery without angina pectoris (principal)
CPT/HCPCS: 93306

== ENCOUNTER → 2020-06-29 | Outpatient (CLI) | payer BC ==
[2019-11-06 14:15] VITALS: BP 126/78
--- NOTE | 2020-06-30 13:27 | RAD ---
MR#: [id number] Date of Study: 06/29/2020 Ordering Physician: SILVIO DOVER, Referring Physician: SILVIO DOVER, Tech: Angel Wolff MBA, RDMS, RVT, RDCS, RTR APPROVED REPORT Patient Location: OUT-PATIENT Laterality:Bilateral Indications Dizziness and Vertigo Doppler Spectral Velocity Analysis Right Left pCCA 113/13 cm/spCCA 100/18 cm/s mCCA 91/10 cm/smCCA 83/17 cm/s dCCA 69/18 cm/sdCCA 75/20 cm/s Bulb 67/16 cm/sBulb 75/14 cm/s ECA 112/ cm/sECA 104/ cm/s pICA 74/16 cm/spICA 72/13 cm/s Mae 85/19 cm/smICA 71/18 cm/s dICA 73/21 cm/sdICA 95/27 cm/s Vert. 78/ cm/sVert. 36/ cm/s Subcl. 169/ cm/sSubcl. 102/ cm/s ICA/CCA 0.75ICA/CCA 0.95 Findings Grayscale images demonstrate mild to moderate diffuse plaque bilaterally in the common carotid, exter nal and internal carotid vessels. On the right side overall 0 to less than 50% stenosis based on velocity criteria with normal ICA to C CA ratios. On the left side there is again 0 to less than 50% stenosis based on velocity criteria with normal IC A to CCA ratios. Normal antegrade right vertebral velocities. Biphasic left vertebral velocities. No significant bilateral subclavian stenosis identified on limited images. Critical Notification Critical Value: No <Conclusion> 1. No significant carotid occlusive disease bilaterally 2. Biphasic left vertebral artery flow but no clear evidence of subclavian steal. Signed by : John Paul Perez, Electronically Approved : 06/30/2020 13:27:30
== END | disposition home or self-care (01) ==
LOC: US 13:04
PROVIDERS: ATTEND Internal Medicine Cardiovascular Disease
DX: I65.23 Occlusion and stenosis of bilateral carotid arteries (principal)
CPT/HCPCS: 93880

== ENCOUNTER → 2020-12-28 | Outpatient (CLI) | payer BC ==
[2019-11-06 14:15] VITALS: BP 126/78
[~2020-12-28] MED LIST changes: +AMLO-186 PO; +AMLO-187 PO; -AMLO10TA8 PO; -AMLO5TAB10 PO; -LISI-338 PO; +LISI-517 PO; +REGADENOSON 0.4 MG/5 ML DISP.SYRIN. IV ONE
[2020-12-28 09:25] LABS: CHOLESTEROL/HDL RATIO 1.9
--- NOTE | 2020-12-28 15:09 | RAD ---
MR#: [id number] Date of Study: 12/28/2020 Ordering Physician: SILVIO DOVER, Referring Physician: PAULO POST Tech: ROSALINDA Clinton, VITALIY (R) (N) APPROVED REPORT Test Type: Pharmacological Stress Nurse/Tech: Lorene Christianson RN Test Indications: CAD Cardiac History: HTN, Cardiac Cath with stent x1 in 2019, See EMR. Medications: See EMR. Medical History: X-Smoker=Quit in 2012. Resting ECG: SR Resting Heart Rate: 63 bpm Resting Blood Pressure: 152/83mmHg Pretest Chest Pain: No chest pain Nurse/Tech Notes Lungs CTA, Heart tones regular. Consent: The procedure was explained to the patient in lay terms. Informed consent was witnessed. Aaron eout was entered into [employer]. History and Stress Test performed by RT Jed OntiverosR) (N) Pharm. Details Pharmacologic stress testing was performed using 0.4mg per 5ml of regadenoson given intravenously ove r 7-10 seconds. Stress Symptoms No chest pain or symptoms. POST EXERCISE Reason for Termination: Infusion complete Max HR: 92 bpm Max Blood Pressure: 144/72mmHg Blood Pressure response to exercise: Normal blood pressure response during stress. Heart Rate response to exercise: WNL Chest Pain: No. Arrhythmia: No. ST Change: No. INTERPRETATION Stress EKG Conclusion: Baseline EKG showed sinus rhythm. No ischemic changes at peak stress. Few PV C's without any significant arrhythmias. Imaging Protocol IMAGE PROTOCOL: Rest Tc-99m/stress Tc-99m 1 day Rest: Stress: Viability: Radiopharm.Tc99m OyporllywVf78i Sestamibi Dose10.4mCi 32.4mCi Img Date 12/28/2020 12/28/2020 Inj-Img Isxr17dry. 60min. Rest Admin Site:IV - Right AntecubitalAdministrator:ROSALINDA Clinton, VITALIY (R)(N) Stress Admin Site: IV - Right AntecubitalAdministrator: RT Paco Ontiveros)(N) STRESS DATA End Diast. Vol.86.0mlAv. Heart Rate82.0bpm End Syst. Vol.28.0mlCO Index BSA0.0L/min Myocardial Ijau405.0gEject. Yjvzjpki31.0% Stress Rates Pk. Fill Rate3.86EDV/secLVtime Pk. Fill 225.01msec Pk. Empty Rate4.67ESV/secLVtime Pk. Wkflk287.66msec 1/3 Pk. Fill0.53EDV/sec Stress Scores Regional WT3.00Summed WT11.00 Regional WM0.00Summed WM1.00 Study quality was good. Left Ventricular size was Normal at Rest and Stress. Lung uptake was . Left Ventricular ejection fraction is 74%. The rest and stress images show normal perfusion, normal contraction and thickening. LV Perf. Quant 17 Seg. SSS4.00 17 Seg. SRS1.00 17 Seg. SDS4.00 Stress Defect Extent (% LAD)0.00Rest Defect Extent (% LAD)7.50Rev. Defect Extent (% LAD)0.00 Stress Defect Extent (% LCX) 38.80Rest Defect Extent (% LCX)0.00Rev. Defect Extent (% LCX)36.30 Stress Defect Extent (% RCA)0.00Rest Defect Extent (% RCA)0.00Rev. Defect Extent (% RCA)0.00 Stress Defect Extent (% ANNA)6.70Rest Defect Extent (% ANNA)3.30Rev. Defect Extent (% ANNA)6.30 Conclusion 1. Regadenoson cardioisotope stress test did not show any evidence of ischemia or infarct. 2. Normal left ventricular systolic function with ejection fraction calculated at 74%. 3. Low risk for cardiac events. Signed by : Silvio Dover, Electronically Approved : 12/28/2020 15:08:44
--- NOTE | 2020-12-28 15:43 | RAD ---
US DPLX ARTR EXTREM LOWER BILAT Indication: Reason: PAD; CAD; HTN; Bilateral in-dwelling arterial stents in legs / Spl. Instructions: / History: Comparison: None. Procedure: Real-time grayscale, color flow Doppler, and Doppler spectral waveform analysis of the art erial system of the lower extremity is performed. Findings: Right lower extremity: Severe atheromatous plaque. Elevated velocity within the right common femoral artery measures 226 cm/s. Mildly elevated velocity within the right deep femoral artery measures 174 cm/s. Mildly elevated velocity within the superficial femoral artery proximally measures 172 cm/s. El evated velocity within the popliteal artery measures 228 cm/s. Patent right lower extremity stents. Left lower extremity: Severe atheromatous plaque. Monophasic waveform within the left mid to distal l ower extremity. Elevated velocity within the left common femoral artery measures 334 cm/s. Decreased velocity within the left distal lower extremity. Patent left superficial femoral artery stent. IMPRESSION: 1. Extensive atheromatous plaque bilaterally. CT angiogram can further assess as clinically warrante d. 2. Moderately elevated velocity within the left common femoral artery, may indicate 50-[address] enosis. 3. Moderately elevated velocity within the right common femoral and popliteal arteries, may indicate 50-75 percent stenosis. 4. Mildly elevated velocity within the right deep femoral and superficial femoral arteries, may catalino khang 30-49 percent stenosis. Electronically signed by: Nitesh Jimenez DO (12/28/2020 3:40 PM) [id number]
== END ==
LOC: NM 08:29
PROVIDERS: ATTEND Internal Medicine Cardiovascular Disease
DX: I25.10 Atherosclerotic heart disease of native coronary artery without angina pectoris (principal); I70.203 Unspecified atherosclerosis of native arteries of extremities, bilateral legs; I10 Essential (primary) hypertension
CPT/HCPCS: 36415; 78452; 80061; 93017; 93925; A9500; J2785

== ENCOUNTER → 2021-07-05 | Outpatient (CLI) | payer BC ==
[2019-11-06 14:15] VITALS: BP 126/78
[~2021-07-05] MED LIST changes: -DULO60CA6 PO; +DULO60CA7 PO; +MIRA25TA PO; -MIRA50TA PO; -REGADENOSON 0.4 MG/5 ML DISP.SYRIN. IV ONE
--- NOTE | 2021-07-06 16:24 | CARD ---
MR#: [id number] Date of Study: 07/05/2021 Ordering Physician: SILVIO DOVER, Referring Physician: SILVIO DOVER, Tech: Deloris Fleming, [facility] APPROVED REPORT EXAM: Two-dimensional and M-mode echocardiogram with Doppler and color Doppler. Other Information Quality : AverageHR: 73bpm Rhythm : NSR INDICATION Cardiac Disease: CAD RISK FACTORS Hypertension Hyperlipidemia 2D DIMENSIONS RVDd3.8 (2.9-3.5cm)Left Atrium(2D)4.2 (1.6-4.0cm) IVSd1.1 (0.7-1.1cm)Aortic Root(2D)3.0 (2.0-3.7cm) LVDd5.1 (3.9-5.9cm)LVOT Diameter2.0 (1.8-2.4cm) PWd1.1 (0.7-1.1cm)LVDs3.6 (2.5-4.0cm) FS (%) 29.9 %SV70.5 ml Aortic Valve AoV Peak Tyron.110.8cm/sAoV VTI25.2cm AO Peak GR.4.9mmHgLVOT Peak Tyron.64.7cm/s LVOT VTI 14.62cmAO Mean GR.3mmHg SHAMIR (VMAX)1.38ao0SCO (VTI)1.88cm2 Mitral Valve MV E Ldgrutpc25.9cm/sMV DECEL GPTN231eg MV A Ykqwoase66.3cm/sMV E Mean Gr.2mmHg MV WSK51nzL/A Ratio1.5 MVA (PHT)3.98cm2 TDI E/Lateral E'7.9E/Medial E'12.4 Pulmonary Valve PV Peak Ocmmrsba09.8cm/sPV Peak Grad.2mmHg Tricuspid Valve TR P. Rmqkzgwg773oj/sRAP TUDGDLKM9yqDc TR Peak Gr.91vvQfOROB60itFj Pulmonary Vein S1 Zfbipagm05.5cm/sD2 Lmwnesmw48.0cm/s PVa fqdktwja134icyd LEFT VENTRICLE The left ventricle is normal size. There is mild concentric left ventricular hypertrophy. The left ve ntricular systolic function is normal. The Ejection Fraction is 50-55%. There is normal LV segmental wall motion. Transmitral Doppler flow pattern is Grade II-pseudonormal filling dynamics. RIGHT VENTRICLE The right ventricle is normal size. There is normal right ventricular wall thickness. The right ventr icular systolic function is normal. ATRIA The left atrium is borderline dilated. The right atrium size is normal. The interatrial septum is int act with no evidence for an atrial septal defect or patent foramen ovale as noted on 2-D or Doppler i maging. AORTIC VALVE The aortic valve is normal in structure and function. Doppler and Color Flow revealed trace aortic re gurgitation. Calculated aortic valve area is 1.64 cm2 with maximum pressure gradient of 5 mmHg and me an pressure gradient of 3 mmHg. There is no significant aortic valvular stenosis. MITRAL VALVE The mitral valve is normal in structure and function. There is no evidence of mitral valve prolapse. There is no mitral valve stenosis. Doppler and Color-flow revealed trace mitral regurgitation. TRICUSPID VALVE The tricuspid valve is normal in structure and function. Doppler and Color Flow revealed trace tricus pid regurgitation with an estimated PAP of 33 mmHg. There is no tricuspid valve stenosis. PULMONIC VALVE The pulmonic valve is not well visualized. Doppler and Color Flow revealed trace pulmonic valvular re gurgitation. GREAT VESSELS The aortic root is normal in size. The ascending aorta is normal in size. The IVC is normal in size a nd collapses >50% with inspiration. PERICARDIAL EFFUSION There is no evidence of significant pericardial effusion. Critical Notification Critical Value: No <Conclusion> The left ventricle is normal size. The left ventricular systolic function is normal. The Ejection Fraction is 50-55%. There is mild concentric left ventricular hypertrophy. Doppler and Color Flow revealed trace aortic regurgitation. There is no significant aortic valvular stenosis. Doppler and Color-flow revealed trace mitral regurgitation. Doppler and Color Flow revealed trace tricuspid regurgitation with an estimated PAP of 33 mmHg. Signed by : Maximiliano Montgomery MD Electronically Approved : 07/06/2021 16:23:32
== END ==
LOC: ECHO 12:54
PROVIDERS: ATTEND Internal Medicine Cardiovascular Disease
DX: I51.7 Cardiomegaly (principal); I25.10 Atherosclerotic heart disease of native coronary artery without angina pectoris
CPT/HCPCS: 93306

== ENCOUNTER → 2021-07-20 | Outpatient (CLI) | payer BC ==
[2019-11-06 14:15] VITALS: BP 126/78
[~2021-07-20] MED LIST changes: +CALC500T30 PO; +CLOP75TA57 PO; +FLUTICASONE 50 MG NS; +IRON 28 MG PO; -LISI-517 PO; -LISI1TAB23 PO; +LISI1TAB35 PO; +LISI5TAB15 PO; +ROPI2TAB6 PO; +XARELTO 10 MG PO
--- NOTE | 2021-07-21 16:07 | RAD ---
MR#: [id number] Date of Study: 07/20/2021 Ordering Physician: SILVIO GOMES, Referring Physician: SILVIO GOMES, Tech: Angel Wolff MBA, RDMS, RVT, RDCS, RTR APPROVED REPORT Patient Location : OUT-PATIENT Indications Lower Extremity Edema : Bilateral Findings Grayscale imaging, spectral waveform and color duplex analysis was performed. The right greater saph enous vein measured 5.6 mm at the saphenofemoral junction and did not show any evidence of reflux. T he left greater saphenous vein measured 5.3 mm at the saphenofemoral junction and did not show any re flux. The lesser saphenous veins bilaterally did not show any reflux. Critical Notification Critical Value: No <Conclusion> No evidence of reflux involving bilateral greater and lesser saphenous veins. Signed by : Silvio Gomes, Electronically Approved : 07/21/2021 16:07:20
--- NOTE | 2021-07-21 16:14 | RAD ---
MR#: [id number] Date of Study: 07/20/2021 Ordering Physician: SILVIO GOMES, Referring Physician: SILVIO GOMES, Tech: Angel Wolff MBA, RDMS, RVT, RDCS, RTR APPROVED REPORT Bilateral Lower Extremity Venous Study for DVT Patient Location: OUT-PATIENT Indications Lower Extremity Edema: Bilateral Vein Imaging (Right) CFV (R): Compressible SFJ (R): Compressible FEM (R): Compressible POP (R): Compressible DFV (R): Compressible PTV (R): Spontaneous GSV (R): Spontaneous Peroneals (R): Spontaneous Vein Imaging (Left) CFV (L): Compressible SFJ (L): Compressible FEM (L): Compressible POP (L): Compressible DFV (L): Compressible PTV (L): Spontaneous GSV (L): Spontaneous Peroneals (L): Spontaneous Doppler Evaluation (Right) CFV (R): Spontaneous POP (R):Spontaneous Doppler Evaluation (Left) CFV (L):Spontaneous POP (L):Spontaneous Findings Grayscale images of deep veins of bilateral lower extremities did not show any thrombus and appear to be fully compressible. Spectral waveform analysis and color Doppler showed normal flow. Below the knee, there is spontaneous flow noted bilaterally and the vessels appear to be compressible. Critical Notification Critical Value: No <Conclusion> No evidence of deep venous thrombosis bilateral lower extremities. Signed by : Silvio Gomes, Electronically Approved : 07/21/2021 16:14:11
== END ==
LOC: US 11:10
PROVIDERS: ATTEND Internal Medicine Cardiovascular Disease
DX: R22.43 Localized swelling, mass and lump, lower limb, bilateral (principal)
CPT/HCPCS: 93970

== ENCOUNTER 2021-08-01 06:50 | Outpatient (CLI) | payer BC ==
[2021-08-01] VITALS (14 sets, daily range): BP systolic 107–158; BP diastolic 58–85
[~2021-08-01] VITALS: Ht 167.6 cm; Wt 79.5 kg
[~2021-08-01 06:50] MED LIST changes: -CALC500T30 PO; -CLOP75TA57 PO; -FLUTICASONE 50 MG NS; -IRON 28 MG PO; -ROPI2TAB6 PO; -XARELTO 10 MG PO
[2021-08-01 07:50] LABS: HEMATOCRIT 38.5 % (36.0-47.0); HEMOGLOBIN 12.7 g/dL (12.0-15.5); RED BLOOD COUNT 4.23 x10^6/uL (3.50-5.40); RED CELL DISTRIBUTION WIDTH 14.8 % (11.5-14.5); WHITE BLOOD COUNT 4.8 x10^3/uL (4.0-11.0)
[2021-08-01 08:00] LABS: CALCIUM 8.8 mg/dL (8.5-10.1); CREATININE 1.1 mg/dL (0.6-1.0); POTASSIUM 4.2 mmol/L (3.5-5.1)
[2021-08-01 08:04] LABS: PROTHROMBIN TIME PATIENT 11.4 SEC (11.7-14.0)
[2021-08-01] MEDS ORDERED: IODIXANOL 320 MG/ML 100 ML VIAL. ONE (08:05)
[2021-08-01] MEDS ORDERED: LIDOCAINE 1% Multi-Dose 20 ML VIAL. ONE (08:05)
[2021-08-01] MEDS ORDERED: FLUTICASONE 50 MG NS (08:22)
[2021-08-01] MEDS ORDERED: IRON 28 MG PO (08:22)
[2021-08-01] MEDS ORDERED: XARELTO 10 MG PO (08:22)
[2021-08-01] MEDS ORDERED: CALC500T30 PO (08:22)
[2021-08-01] MEDS ORDERED: ROPI2TAB6 PO (08:22)
[2021-08-01] MEDS ORDERED: LIDOCAINE 1% PF 2 ML VIAL. ONE (08:34)
[2021-08-01] MEDS ORDERED: fentaNYL PF VIAL 100 MCG/2 ML VIAL ONE (08:38)
[2021-08-01] MEDS ORDERED: HEPARIN for IV BOLUS 10,000 UNIT/10 ML VIAL. ONE (08:39)
[2021-08-01] MEDS ORDERED: NITROGLYCERIN 200 MCG/2 ML SYRINGE FOR CATH/VASC LAB. ONE ×2 (08:39→09:19)
[2021-08-01] MEDS ORDERED: VERAPAMIL 5 MG/2 ML VIAL. ONE (08:39)
[2021-08-01] MEDS ORDERED: MIDAZOLAM HCL/PF 2 MG/2 ML VIAL. ONE (08:39)
[2021-08-01] MEDS ORDERED: LIDOCAINE 1% PF 2 ML VIAL. INJ ONE (09:30)
[2021-08-01] MEDS ORDERED: VERAPAMIL 5 MG/2 ML VIAL. IART ONE (09:30)
[2021-08-01] MEDS ORDERED: MIDAZOLAM HCL/PF 2 MG/2 ML VIAL. IV ONE (09:30)
[2021-08-01] MEDS ORDERED: fentaNYL PF VIAL 100 MCG/2 ML VIAL IV ONE (09:30)
[2021-08-01] MEDS ORDERED: HEPARIN for IV BOLUS 10,000 UNIT/10 ML VIAL. IV ONE (09:30)
[2021-08-01] MEDS ORDERED: NITROGLYCERIN 200 MCG/2 ML SYRINGE FOR CATH/VASC LAB. IART ONE (09:30)
[2021-08-01] MEDS ORDERED: IODIXANOL 320 MG/ML 100 ML VIAL. IART ONE (09:30)
[2021-08-01] MEDS ORDERED: HEPARIN for IV BOLUS 10,000 UNIT/10 ML VIAL. IART ONE (09:30)
[2021-08-01] MEDS ORDERED: CLOPIDOGREL BISULFATE 75 MG TABLET PO ONE (09:45)
[2021-08-01] MEDS ORDERED: CLOPIDOGREL BISULFATE 75 MG TABLET ONE (09:50)
--- NOTE | 2021-08-01 09:55 | PDOC ---
MODERATE SEDATION ASSESSMENT RISKS/ALTERNATIVES Risks/Alternatives Risks and alternatives of this type of sedation and procedure discussed with: RISK/ALTERNATIVES: Patient H & P ON CHART H & P H & P on chart and reviewed for co-morbid conditions and appropriate labs. H&P ON CHART: Yes STATUS PREG STATUS ASSESSED: N/A MEDS/ALLERGIES REVIEWED Meds/Allergies Reviewed Medications and Allergies including time and route of recently administered narcotics and sedatives. MEDS/ALLERGIES REVIEWED: Yes ASA RATING ASA RATING: III AIRWAY ASSESSMENT Airway Assessment Airway patency, oral function limitations, presence of caps, crowns, dentures, partials, and ability to extend neck assessed. AIRWAY ASSESSMENT: Yes MALLAMPATI SCORE MALLAMPATI SCORE: II PRE-SEDATION ASSESSMENT PRE-SEDATION ASSESSMENT: Yes SILVIO DOVER MD Aug 01, 2021 09:55
[2021-08-01] MEDS ORDERED: IV 1/2 NORMAL SALINE 1,000 ML IV SCH (10:00)
--- NOTE | 2021-08-01 10:31 | CARD ---
MR#: [id number] Date of Study: 08/01/2021 Ordering Physician: SILVIO DOVER, Referring Physician: SILVIO DOVER Tech: Natasha Abreu RT(R) APPROVED REPORT Patient StatusOUT-PATIENT Technical Clerk: Natasha Abreu RT(R) Procedure(s) performed: 1. Aortogram with bilateral lower extremity runoff via right transradial erik aguilar 2. Successful MAINTENANCE SERVICE DISPATCHER/stent placement to the left superficial femoral artery MODERATE SEDATION TIME: 71 MINUTES FLUORO TIME: 12.0 MIN DOSE: 73.3 GYCM2 CONTRAST: 120CC VISI INDICATION FOR PROCEDURE The indication(s) include : Peripheral artery disease with claudication, abnormal arterial duplex sca n. CASE TECHNIQUE After explaining the risks, benefits, and alternative options, informed consent was obtained from the patient. IV conscious sedation was used throughout procedure with appropriate monitoring and was per formed in the presence of a registered nurse who was an independent trained observer other than the kellen myles performing the procedure. During this case, Fluoroscopy and low osmolar contrast were used f or imaging. Specimen(s) Removed: No Estimated Blood loss: 15 cc's. PROCEDURE NARRATIVE After explaining the risk, benefits and alternative options, informed consent was obtained from patie nt. Patient was brought to the cardiac Service Desk Manager and her right wrist was prepped and draped in the us ual fashion after confirming a positive modified Nicko's test. Arterial access was obtained in the r ight radial artery and a 6 Kazakh sheath was inserted. A 4 Kazakh R2P PV multicurve catheter was adv anced under fluoroscopic guidance and with the tip positioned in the descending aorta, aorto iliac an giography was performed. The catheter was advanced over wire into the right external iliac artery an d selective right lower extremity angiography was performed. The catheter was withdrawn and then adv anced into the left external iliac artery and selective left lower extremity angiography was performe d. The following findings were noted: FINDINGS 1. No significant stenosis involving the distal descending aorta 2. No significant stenosis involving bilateral common and external iliac arteries 3. No significant stenosis involving bilateral common femoral arteries 4. The long stented segment of the right superficial femoral artery was widely patent without any si gnificant stenosis. The previously placed stents in the left superficial femoral artery were widely patent as well. The proximal segment however showed dissected segment resulting in 80% stenosis. 5. The popliteal arteries bilaterally did not show any significant stenosis. 6. Below the knee, the right lower extremity showed three vessel runoff. The left lower extremity s howed two-vessel runoff. 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 INTERVENTION The sheath in the right radial artery was exchanged over a wire to a 6 Kazakh Terumo R2P destination sheath. This was advanced under fluoroscopy guidance and the tip was positioned in the left external iliac artery. The lesion in the proximal segment of the left superficial femoral artery was crossed with a 0.035 inch Glidewire. This was dilated with a 5.0 x 40 mm Terumo R2P Metacross balloon follo wing which this was successfully treated with a Terumo 7 x 40 mm Misago self-expanding stent. Follow -up angiography showed resolution of the lesion with good distal flow. Patient tolerated the procedu re well. Hemostasis was achieved using TR band. There were no immediate complications Conclusion 1. Significant stenosis involving the proximal segment of the left superficial femoral artery as sta joshua above. The previously placed stents in bilateral superficial femoral arteries were widely patent . 2. Successful MAINTENANCE SERVICE DISPATCHER/stent placement to the left superficial femoral artery. Recommendations 1. Aspirin 81 mg daily 2. Plavix 75 mg daily for 1 month followed by Xarelto 2.5 mg twice daily 3. Vascular risk factor modification Signed by : Silvio Dover, Electronically Approved : 08/01/2021 10:31:12
--- NOTE | 2021-08-01 11:05 | NUR ---
Patient's site began to leak. 2ml air re-inserted and washcloth placed under hand. No further bleeding at this time. Will remove more air ~1135.
[2021-08-01] MEDS ORDERED: CLOP75TA57 PO (11:15)
--- NOTE | 2021-08-01 14:00 | NUR ---
VS stable. No bleeding at access site, no sign of hematoma. PIV removed. Instructions given on site care, sedation. Patient and son verbalized understanding. RN gave specific instructions on importance of not using wrist/hand due to risk of bleeding. Patient verbalized understanding. Patient able to ambulate to bathroom, get dressed w/ RN assistance. RN called in Plavix Rx to [facility] per patient request. Son states he will sheepskin pickler. Son is driving patient home. Patient lives at home alone, but son, who has "health issues", states he is going to help patient get situated and stay for a while. States she can "call her neighbor if she needs something later tonight". RN stated that we prefer patient has someone stay with her, but patient states that is not an option due to son's health issues. Instructed patient to call 911 if her wrist began to bleed. She is alert and oriented x4, is able to ambulate and comprehend instructions. All belongings taken w/ patient at time of d/c. See VS, assessments.
[2021-08-02] MEDS ORDERED: ASPIRIN ENTERIC COATED 81 MG TABLET.DR. PO SCH (08:00)
[2021-08-02] MEDS ORDERED: CLOPIDOGREL BISULFATE 75 MG TABLET PO SCH (08:00)
== END 2021-08-01 14:06 | disposition home or self-care (01) ==
LOC: CCL 06:50
PROVIDERS: ATTEND Internal Medicine Cardiovascular Disease
DX: I73.9 Peripheral vascular disease, unspecified (principal); I10 Essential (primary) hypertension; E78.00 Pure hypercholesterolemia, unspecified; M19.90 Unspecified osteoarthritis, unspecified site; F41.9 Anxiety disorder, unspecified; F32.9 Major depressive disorder, single episode, unspecified; J44.9 Chronic obstructive pulmonary disease, unspecified; I25.10 Atherosclerotic heart disease of native coronary artery without angina pectoris; Z87.440 Personal history of urinary (tract) infections; Z90.710 Acquired absence of both cervix and uterus; Z98.890 Other specified postprocedural states; Z87.891 Personal history of nicotine dependence; Z79.899 Other long term (current) drug therapy; Z72.89 Other problems related to lifestyle; Z88.8 Allergy status to other drugs, medicaments and biological substances
CPT/HCPCS: 36415; 37226; 75625; 75716; 80048; 85027; 85610; 99152; 99153; C1725; C1769; C1876; C1894; J1644; J2250; J3010; J3490; Q9967